=== PATIENT | female | born 1980 ===

== ENCOUNTER 2020-09-04 10:15 | Outpatient (REF) | payer BC, SELFPAY ==
--- NOTE | 2020-09-04 10:15 | PAPFT_PTH ---
PATIENT: MALCOM MELGAR LOC: [facility] U#:[id number] AGE/SX: 39/F ROOM: RE09/04/[address]: Gabbie Kellogg : 1980 BED: DIS: 09/04/2020 SPEC #: [id number] RECD: 09/05/20 13:15 STATUS: HANNAH PETTY #: [id number] SARBJIT: 09/04/20 10:[address]: Gabbie Kellogg DEPT: [facility] Cytology RECD BY: Lakeisha Daley Tissues: 1 - CX/ENDOCX FOR PAP SMEARS Procedures: PAP THIN PREP/[facility] Screening Comments: [phone] ([facility]#)
== END 2020-09-04 10:35 ==
LOC: LBN 10:15
PROVIDERS: Visit Provider Naturopath
DX: Z01.419 Encounter for gynecological examination (general) (routine) without abnormal findings (principal); Z12.4 Encounter for screening for malignant neoplasm of cervix
CPT/HCPCS: 88142